=== PATIENT | male | born 1980 | race African-American/Black ===

== ENCOUNTER 2017-12-17 16:03 | Emergency (ER) | payer MEDICAID ==
[~2017-12-17] VITALS: Ht 180.3 cm; Wt 69.0 kg
[~2017-12-17 16:03] MED LIST: BENADRYL; LACO200T2; LAMOTRIGINE; TAM75 PO
[2017-12-17 16:17] VITALS: BP 120/82
== END 2017-12-17 18:07 | disposition home or self-care (01) ==
LOC: ER 17:54
DX: S40.862A Insect bite (nonvenomous) of left upper arm, initial encounter (principal); S40.861A Insect bite (nonvenomous) of right upper arm, initial encounter; S80.862A Insect bite (nonvenomous), left lower leg, initial encounter; S80.861A Insect bite (nonvenomous), right lower leg, initial encounter; W57.XXXA Bitten or stung by nonvenomous insect and other nonvenomous arthropods, initial encounter; Y93.89 Activity, other specified; Y92.89 Other specified places as the place of occurrence of the external cause; F84.5 Asperger's syndrome; Z88.2 Allergy status to sulfonamides; G40.909 Epilepsy, unspecified, not intractable, without status epilepticus; Z79.899 Other long term (current) drug therapy
CPT/HCPCS: 99281

== ENCOUNTER 2020-07-19 11:51 | Emergency (ER) | payer MEDICAID ==
[~2020-07-19] VITALS: Ht 180.3 cm; Wt 68.0 kg
[~2020-07-19 11:51] MED LIST changes: +AZIT250T MT; +CEPH500C2 MT
[2020-07-19 11:54] VITALS: BP 142/96
[2020-07-19] MEDS ORDERED: CLINDAMYCIN HCL 150MG CAPSULE PO ONE (14:30)
[2020-07-19] MEDS ORDERED: LIDOCAINE HCL/EPINEPHRINE 1%-EPI 1:100,000 20 ML VIAL INFIL ONE (15:00)
[2020-07-19 15:12] LABS: CHLORIDE 104 mEq/L (98-107)
[2020-07-19 15:13] LABS: BASOPHILS % 0.8 % (0.0-2.0); EOSINOPHILS % 1.4 % (0.0-5.0); HEMATOCRIT. 39.6 % (42.0-52.0); HEMOGLOBIN. 13.1 g/dL (14.0-18.0); MEAN CORPUSCULAR HEMOGLOBIN 27.1 pg (28.0-32.0); MEAN CORPUSCULAR VOLUME 82.1 fL (80.0-94.0); MEAN PLATELET VOLUME 7.8 fl (7.4-10.4); MONOCYTES % 7.6 % (2.0-8.0); NEUTROPHILS % 70.2 % (40.0-76.0); PLATELET 353 x1000/uL (130-400); RED BLOOD CELL COUNT 4.83 mill/uL (4.7-6.1); RED CELL DISTRIBUTION WIDTH 14.3 % (11.6-14.6)
[2020-07-19] MEDS ORDERED: LIDOCAINE HCL 1% 20ML VIAL (Pyxis) INJ INFIL ONE (15:15)
[2020-07-19 15:20] LABS: ETHANOL BLOOD < 10 mg/dL
[2020-07-19] MEDS ORDERED: CLIN150C15 MT ×2 (15:30)
[2020-07-19] MEDS ORDERED: CLIN300C12 MT (15:32)
== END 2020-07-19 15:53 | disposition home or self-care (01) ==
LOC: ER 11:51
DX: R22.0 Localized swelling, mass and lump, head (principal); F81.9 Developmental disorder of scholastic skills, unspecified
CPT/HCPCS: 10060; 36415; 71045; 80053; 80320; 85025; 99284; J3490; Z7610; G0480

== ENCOUNTER 2022-02-05 03:04 | Emergency (ER) | payer MEDICAID ==
[~2022-02-05] VITALS: Ht 180.3 cm; Wt 78.0 kg
[~2022-02-05 03:04] MED LIST changes: +CLIN-194 MT
[2022-02-05 03:48] VITALS: BP 133/90
[2022-02-05] MEDS ORDERED: IBUPROFEN 600MG TABLET PO ONE (07:15)
[2022-02-05] MEDS ORDERED: ERYT1OIN6 EACHEYE (09:21)
== END 2022-02-05 09:36 | disposition home or self-care (01) ==
LOC: ER 03:51
DX: B34.9 Viral infection, unspecified (principal); R05.9 Cough, unspecified; Z98.890 Other specified postprocedural states; Z79.899 Other long term (current) drug therapy; Z88.0 Allergy status to penicillin; Z20.822 Contact with and (suspected) exposure to COVID-19
CPT/HCPCS: 71045; 87426; 87804; 99284

== ENCOUNTER 2023-06-03 14:56 | Emergency (ER) | payer MEDICAID ==
[~2023-06-03] VITALS: Ht 180.3 cm; Wt 84.0 kg
[~2023-06-03 14:56] MED LIST changes: +ERYT1OIN6 EACHEYE
[2023-06-03 15:02] VITALS: BP 127/87; PULSE 78; RESP 16; O2SAT 99
[2023-06-03] MEDS ORDERED: IBUP-2028 MT (19:09)
== END 2023-06-03 19:48 | disposition home or self-care (01) ==
LOC: ER 15:26
DX: M25.532 Pain in left wrist (principal); Z88.2 Allergy status to sulfonamides; Z88.0 Allergy status to penicillin
CPT/HCPCS: 73110; 73130; 99284